=== PATIENT | male | born 1935 | race Caucasian/White ===

== ENCOUNTER 2018-12-11 12:37 | Day surgery (SDC) | payer OTHER ==
[2018-12-10 12:20] VITALS: BMI 27.4
[2018-12-11 14:20] LABS: POTASSIUM 3.5 mmol/L (3.5-5.1)
[2018-12-11] MEDS ORDERED: MIDAZOLAM HCL 2 MG/2 ML SINGLE DOSE VIAL ONE (14:45)
[2018-12-11] MEDS ORDERED: ceFAZolin SODIUM 1 GM VIAL ONE (14:51)
[2018-12-11] MEDS ORDERED: SODIUM CHLORIDE 0.9% P/F 10 ML VIAL IJ ONE (14:52)
[2018-12-11] MEDS ORDERED: ceFAZolin SODIUM 1 GM VIAL IVPB ONE (15:10)
[2018-12-11] MEDS ORDERED: LIDOCAINE HCL 1%, 10 MG/ML (50 mL VIAL) IJ ONE (15:17)
[2018-12-11] MEDS ORDERED: ONDANSETRON 4 MG/2 ML VIAL IVPUSH PRN (16:20)
--- NOTE | 2018-12-11 16:25 | OP ---
Operative Note - Note: Operative Date: 12/11/18 Pre-Operative Diagnosis: Left lower ext claudication Operation: Aortogram, LLE angiogram, SFA angioplasty, with popliteal artery stent placement. Findings: SFA stent occlusion Post-Operative Diagnosis: Same as Pre-op Surgeon: Kirby Isaacs Anesthesia: Fractional Estimated Blood Loss (mls): 50 Operative Report Dictated: Yes
[2018-12-11] MEDS ORDERED: LACTATED RINGERS SOLUTION 1,000 ML IV SCH (16:30)
--- NOTE | 2018-12-11 16:30 | HP ---
Admitting History and Physical - Admission Chief Complaint: LLE claudication for 6 months Limitations to Obtaining History: No Limitations - Past Medical History Cardiovascular: Yes: CHF, HTN Endocrine: Yes: Diabetes Mellitus - Past Surgical History Past Surgical History: Yes: Hernia Repair - Smoking History Smoking history: Former smoker Have you smoked in the past 12 months: No Aproximately how many cigarettes per day: 0 If you are a former smoker, when did you quit?: 10 years ago - Alcohol/Substance Use Hx Alcohol Use: No Home Medications - Allergies Allergies/Adverse Reactions: Allergies Allergy/AdvReac Type Severity Reaction Status Date / Time Penicillins Allergy Intermediate Hives Verified 12/11/18 13:34 - Home Medications Home Medications: Ambulatory Orders Amlodipine Besylate [Norvasc -] 10 mg PO DAILY 11/04/13 Aspirin 81 mg PO DAILY 11/04/13 Finasteride 5 mg PO DAILY 11/04/13 Metoprolol Succinate [Toprol XL -] 25 mg PO DAILY 11/04/13 Omeprazole [Prilosec (RX)] 20 mg PO DAILY 11/04/13 Valsartan [Diovan] 80 mg PO DAILY 11/04/13 Tamsulosin HCl [Flomax -] 0.4 mg PO HS 06/16/15 Clopidogrel Bisulfate [Plavix -] 75 mg PO DAILY #30 tablet 02/24/16 Furosemide [Lasix -] 40 mg PO DAILY 04/22/16 Atorvastatin Ca [Lipitor] 20 mg PO HS 12/10/18 Bisacodyl [Laxative] 5 mg PO PRN 12/10/18 Chlorthalidone [Hygroton -] 25 mg PO DAILY 12/10/18 Diclofenac/Lidocaine/Tape [Trixylitral 1.5%-3.88% Kit] 1 each TP QID 12/10/18 Fluconazole [Diflucan -] 100 mg PO DAILY 12/10/18 Hydrocodone/Acetaminophen [Hydrocodone-Acetamin 5-325 mg] 1 each PO PRN Metformin HCl [Metformin HCl ER] 500 mg PO BID 12/10/18 Polyethylene Glycol 3350 [Miralax (For Bowel Prep) -] 17 gm PO PRN 12/10/18 Sodium Phosphate/Na Biphos [Fleet Adult Rectal Enema] 133 ml RC PRN 12/10/18 Solifenacin Succinate [Vesicare -] 5 mg PO DAILY 12/10/18 Insulin Lispro [Humalog] 10 unit SQ DAILY 12/11/18 Insulin Regular [Novolin R Vial -] 205 units SQ WEEKLY 12/11/18 Review of Systems - Review of Systems Constitutional: reports: No Symptoms Eyes: reports: No Symptoms HENT: reports: No Symptoms Neck: reports: No Symptoms Cardiovascular: reports: No Symptoms Respiratory: reports: No Symptoms Gastrointestinal: reports: No Symptoms Genitourinary: reports: No Symptoms Breasts: reports: No Symptoms Reported Musculoskeletal: reports: No Symptoms Integumentary: reports: No Symptoms Neurological: reports: No Symptoms Endocrine: reports: No Symptoms Hematology/Lymphatic: reports: No Symptoms Psychiatric: reports: No Symptoms Physical Examination Vital Signs: Vital Signs Temperature 97.5 F L 12/11/18 12:55 Pulse Rate 99 H 12/11/18 12:55 Respiratory Rate 16 12/11/18 12:55 Blood Pressure 137/81 12/11/18 12:55 O2 Sat by Pulse Oximetry (%) 97 12/11/18 13:22 Constitutional: Yes: Well Nourished, No Distress, Calm Eyes: Yes: WNL, Conjunctiva Clear, EOM Intact HENT: Yes: WNL, Atraumatic, Normocephalic Neck: Yes: WNL, Supple, Trachea Midline Cardiovascular: Yes: WNL, Regular Rate and Rhythm Respiratory: Yes: WNL, Regular, CTA Bilaterally Gastrointestinal: Yes: WNL, Normal Bowel Sounds Musculoskeletal: Yes: WNL Extremities: Yes: WNL Edema: No Peripheral Pulses WNL: No Integumentary: Yes: WNL Neurological: Yes: WNL, Alert, Oriented ...Motor Strength: WNL Psychiatric: Yes: WNL Labs: CBC, BMP 12/11/18 13:30 Problem List - Problems (1) Claudication of left lower extremity Assessment/Plan: For left lower ext angiogram. Code(s): I73.9 - PERIPHERAL VASCULAR DISEASE, UNSPECIFIED
[2018-12-11] MEDS ORDERED: CLOPIDOGREL BISULFATE 75 MG TABLET (FP) PO ONE (16:34)
[2018-12-11 18:25] VITALS: TEMP 98
[2018-12-11 20:35] VITALS: BP 159/80; PULSE 81
--- NOTE | 2018-12-16 14:59 | OP ---
DATE OF OPERATION: 12/11/2018 PREOPERATIVE DIAGNOSIS: Left lower extremity claudication. POSTOPERATIVE DIAGNOSIS: Left lower extremity claudication. PROCEDURE: Aortogram, left lower extremity angiogram, superficial femoral artery angioplasty, with popliteal artery stent. SURGEON: Kirby Shields DO ANESTHESIA: Fractional. BLOOD LOSS: 50 mL. The patient is an 83-year-old male who has left lower extremity claudication. On preoperative ultrasound, it shows that he has a left distal SFA above-knee type occlusion. The last time we saw the patient was about 3 years ago. He travels back and forth from his [place] country, and he has not followed up since. He now comes in with left lower extremity claudication and now needs a procedure. The patient came in through ambulatory surgery. The patient was consented for the procedure, understanding all risks, benefits, alternatives. The patient was then taken to the operating room. Once in the operating room, he was placed on the operating table in supine manner. The area of the left and right groin were prepped and draped in sterile surgical manner. We then injected 10 mL of lidocaine 1% over the right common femoral artery. We then punctured the right common femoral artery using our micropuncture needle. Micropuncture wire was inserted, micropuncture sheath was inserted, and a traditional 5-[place] sheath was inserted. We then placed a 0.035 floppy guidewire up into the aorta followed by an Omni Flush catheter. We then shot an aortogram via hand injection, showing that the aorta and iliac arteries were without any disease. We then used a 0.035 floppy guidewire up and over to the left common femoral artery, followed by our Omni Flush catheter. We then shot an angiogram of the left lower extremity, showing that the common femoral artery, the profunda, and the SFA are patent. There is a stent in the SFA that is patent, but the distal SFA at above-knee popliteal artery is occluded. Distal popliteal artery is patent and patient has 2-vessel runoff into the foot. At this point, we placed a 0.035 stiff guidewire into the SFA, we removed our Omni Flush catheter, placed a 6 x 45 crossover sheath. Heparin 5000 units IV was administered to the patient. We then brought our wire down to the occlusion, followed by Omni Flush catheter. We moved it across our occlusion and placed our wire in the anterior tibial artery. We then went ahead and used a 5 x 8 balloon and performed angioplasty of the occluded segment. Completion angiogram showed that the SFA was now patent but there was a slight dissection. We then went ahead and used a 6 x 8 LifeStent and placed the stent across our occlusion, and we then ballooned the stent in place using our 5 x 8 balloon. Completion angiogram now showed that the SFA was patent, there was good brisk flow, there was no recoil, the stent was patent, and there was good 2-vessel runoff into the foot. At this point, no more intervention was needed. We brought our sheath up and over. A StarClose device was successfully deployed in the right common femoral artery. Pressure was held for 5 minutes. After there was no more bleeding, the area was wet and dried and Dermabond was placed. Patient tolerated the procedure with no complications. Patient transferred to PACU in stable condition. KIRBY SHIELDS DO [id number]
== END 2018-12-11 19:15 | disposition home or self-care (01) ==
LOC: JASU-SURG 12:37
PROVIDERS: ATTEND Surgery Vascular Surgery
PROC: 047N3DZ Dilation of Left Popliteal Artery with Intraluminal Device, Percutaneous Approach (ICD-10-PCS; principal; 2018-12-11 13:30)
DX: I70.212 Atherosclerosis of native arteries of extremities with intermittent claudication, left leg (principal); I10 Essential (primary) hypertension; E11.9 Type 2 diabetes mellitus without complications
CPT/HCPCS: 37226; C1877; 36415; 76000-TC-FY; 82947; 84132; 94760

== ENCOUNTER 2019-09-17 12:07 | Day surgery (SDC) | payer OTHER ==
[2019-09-16 12:04] VITALS: BMI 26.6
[2019-09-17] MEDS ORDERED: HEPARIN NA (PORCINE) 5,000 UNITS/ML 1ML VIAL ONE (12:15)
[2019-09-17] MEDS ORDERED: LIDOCAINE HCL 1%, 10 MG/ML (20ML VIAL) ONE ×2 (12:15→15:20)
[2019-09-17] MEDS ORDERED: MIDAZOLAM HCL 2 MG/2 ML SINGLE DOSE VIAL ONE (15:19)
--- NOTE | 2019-09-17 15:20 | HP ---
Admitting History and Physical - Admission Chief Complaint: left lower extremity claudication one block Limitations to Obtaining History: No Limitations - Past Medical History Cardiovascular: Yes: CHF, HTN Endocrine: Yes: Diabetes Mellitus - Past Surgical History Past Surgical History: Yes: Hernia Repair - Smoking History Smoking history: Former smoker Have you smoked in the past 12 months: No Aproximately how many cigarettes per day: 0 If you are a former smoker, when did you quit?: 10 years ago - Alcohol/Substance Use Hx Alcohol Use: No Home Medications - Allergies Allergies/Adverse Reactions: Allergies Allergy/AdvReac Type Severity Reaction Status Date / Time No Known Allergies Allergy Verified 09/17/19 13:36 - Home Medications Home Medications: Ambulatory Orders Amlodipine Besylate [Norvasc -] 10 mg PO DAILY 11/04/13 Aspirin 81 mg PO DAILY 11/04/13 Finasteride 5 mg PO DAILY 11/04/13 Metoprolol Succinate [Toprol XL -] 25 mg PO DAILY 11/04/13 Omeprazole [Prilosec (RX)] 20 mg PO DAILY 11/04/13 Valsartan [Diovan] 80 mg PO DAILY 11/04/13 Tamsulosin HCl [Flomax -] 0.4 mg PO HS 06/16/15 Furosemide [Lasix -] 40 mg PO DAILY 04/22/16 Atorvastatin Ca [Lipitor] 20 mg PO HS 12/10/18 Bisacodyl [Laxative] 5 mg PO PRN 12/10/18 Chlorthalidone [Hygroton -] 25 mg PO DAILY 12/10/18 Diclofenac/Lidocaine/Tape [Trixylitral 1.5%-3.88% Kit] 1 each TP QID 12/10/18 Fluconazole [Diflucan -] 100 mg PO DAILY 12/10/18 Hydrocodone/Acetaminophen [Hydrocodone-Acetamin 5-325 mg] 1 each PO PRN Polyethylene Glycol 3350 [Miralax (For Bowel Prep) -] 17 gm PO PRN 12/10/18 Sodium Phosphate/Na Biphos [Fleet Adult Rectal Enema] 133 ml RC PRN 12/10/18 Solifenacin Succinate [Vesicare -] 5 mg PO DAILY 12/10/18 metFORMIN HCL [Metformin HCl ER] 500 mg PO BID 12/10/18 Clopidogrel Bisulfate [Plavix] 75 mg PO DAILY #30 tablet 05/18/19 Semaglutide [Ozempic] 0.25 mg SQ WEEKLY 09/17/19 Review of Systems - Review of Systems Constitutional: reports: No Symptoms Eyes: reports: No Symptoms HENT: reports: No Symptoms Neck: reports: No Symptoms Cardiovascular: reports: No Symptoms Respiratory: reports: No Symptoms Gastrointestinal: reports: No Symptoms Genitourinary: reports: No Symptoms Musculoskeletal: reports: No Symptoms Integumentary: reports: No Symptoms Neurological: reports: No Symptoms Endocrine: reports: No Symptoms Hematology/Lymphatic: reports: No Symptoms Psychiatric: reports: No Symptoms Physical Examination Vital Signs: Vital Signs Temperature 98.3 F 09/17/19 13:19 Pulse Rate 73 09/17/19 13:19 Respiratory Rate 18 09/17/19 13:19 Blood Pressure 147/60 09/17/19 13:19 O2 Sat by Pulse Oximetry (%) 100 09/17/19 13:21 Constitutional: Yes: Well Nourished, No Distress, Calm Eyes: Yes: WNL, Conjunctiva Clear, EOM Intact HENT: Yes: WNL, Atraumatic, Normocephalic Neck: Yes: WNL, Supple, Trachea Midline Cardiovascular: Yes: WNL, Regular Rate and Rhythm Respiratory: Yes: WNL, Regular, CTA Bilaterally Gastrointestinal: Yes: WNL, Normal Bowel Sounds Musculoskeletal: Yes: WNL Extremities: Yes: WNL Edema: No Peripheral Pulses WNL: No Integumentary: Yes: WNL Neurological: Yes: WNL, Alert, Oriented ...Motor Strength: WNL Psychiatric: Yes: WNL Problem List - Problems (1) Claudication of left lower extremity Assessment/Plan: for angiogram today Code(s): I73.9 - PERIPHERAL VASCULAR DISEASE, UNSPECIFIED
[2019-09-17] MEDS ORDERED: ceFAZolin SODIUM 1 GM VIAL IVPB ONE (15:22)
[2019-09-17] MEDS ORDERED: PROPOFOL 20 ML ONE (15:33)
[2019-09-17] MEDS ORDERED: LIDOCAINE HCL 1%, 10 MG/ML (20ML VIAL) NR ONE (15:35)
[2019-09-17] MEDS ORDERED: SUCCINYLCHOLINE CHLORIDE 200 MG/10 ML SYRINGE ONE (15:37)
[2019-09-17] MEDS ORDERED: PROTAMINE SULFATE 50 MG/5 ML VIAL ONE (15:38)
[2019-09-17] MEDS ORDERED: ceFAZolin SODIUM 1 GM VIAL ONE (15:41)
--- NOTE | 2019-09-17 16:48 | OP ---
Operative Note - Note: Operative Date: 09/17/19 Pre-Operative Diagnosis: left lower extremity claudication Operation: Aorotogram, LLE angiogram , SFA angioplasty Findings: sfa instent occlusion Post-Operative Diagnosis: Same as Pre-op Surgeon: Kirby Isaacs Anesthesia: Fractional Estimated Blood Loss (mls): 50 Operative Report Dictated: Yes
[2019-09-17] MEDS ORDERED: CLOPIDOGREL BISULFATE 75 MG TABLET (FP) PO ONE (16:50)
[2019-09-17] MEDS ORDERED: ONDANSETRON 4 MG/2 ML VIAL IVPUSH PRN (17:04)
[2019-09-17] MEDS ORDERED: CLOPIDOGREL BISULFATE 75 MG TABLET (FP) ONE (17:34)
[2019-09-17 18:32] VITALS: BP 151/88; PULSE 88; TEMP 98.2
--- NOTE | 2019-09-29 13:56 | OP ---
DATE OF OPERATION: 09/17/2019 PREOPERATIVE DIAGNOSIS: Left lower extremity claudication. POSTOPERATIVE DIAGNOSIS: Left lower extremity claudication. PROCEDURE: Aortogram, left lower extremity angiogram, superficial femoral artery angioplasty. FINDINGS: SFA in-stent occlusion. SURGEON: Kirby Shields DO ANESTHESIA: Fractional. BLOOD LOSS: 50 mL. INDICATIONS: Patient is an 84-year-old male that comes in with left lower extremity claudication. The last time we saw patient was 1 year ago because he travels back and forth from [place]. Patient had preoperative ultrasound showing that he has stenotic areas in his left SFA stent, and it was decided that he would need an angiogram. Patient was cleared from a medical and cardiology standpoint and then came in through ambulatory surgery. Patient was consented for the procedure understanding all risks, benefits, alternatives. DESCRIPTION OF PROCEDURE: Patient was then brought to the operating room, laid on operative table in supine manner, and the area of the right and left groin were prepped and draped in a sterile surgical manner. We then injected 10 mL of lidocaine 1% over the right common femoral artery. We then took our micropuncture needle, punctured the right common femoral artery. Micropuncture wire was inserted, and a traditional 5-Chinese sheath was inserted. We then placed a 0.035 floppy guidewire up into the aorta followed by Omni Flush catheter. We then shot an aortogram via hand injection showing that the aorta and the iliac arteries were without any disease. We then used our 0.035 floppy guidewire, went up and over to the left common femoral artery, and our Omni Flush catheter followed. We then shot an angiogram of the left lower extremity showing that the common femoral artery and the profunda were patent. The SFA stent was patent, but there was an area in the SFA stent that was completely occluded, and there were many areas of the stent that were occluded. Patient's below-knee popliteal artery was patent, and patient had 2-vessel runoff going into the foot. At this point, we placed a 0.035 stiff guidewire into the left SFA stent. Omni Flush catheter was removed. A 6 x 45 crossover sheath was placed; 5000 units of IV heparin were administered to the patient. We then placed our 0.[address] down to the stent into below-knee popliteal artery. We then went ahead and used a 6 x 200 Ultraverse balloon, and we were able to perform angioplasty of the entire stent. Completion angiogram now showed that the stent was patent. There was good, brisk flow all the way into the foot. The patient had a palpable pulse. At this point, no more intervention was needed. We brought our sheath up and over. StarClose device was successfully deployed in the right common femoral artery. Pressure was held for 5 minutes. After there was no more bleeding, area was wet and dried, and Dermabond was placed. Patient tolerated the procedure with no complications. Patient transferred to PACU in stable condition. KIRBY SHIELDS DO [id number]
== END 2019-09-17 18:43 | disposition home or self-care (01) ==
LOC: JASU-SURG 12:07
PROVIDERS: ATTEND Surgery Vascular Surgery
PROC: 047L3ZZ Dilation of Left Femoral Artery, Percutaneous Approach (ICD-10-PCS; principal; 2019-09-17 13:30)
DX: I70.212 Atherosclerosis of native arteries of extremities with intermittent claudication, left leg (principal); E11.9 Type 2 diabetes mellitus without complications
CPT/HCPCS: 37224; C1725; 76000-TC-FY; 82962; 94760; J1644